=== PATIENT | male | born 1970 | race Caucasian/White ===

== ENCOUNTER → 2023-09-06 09:44 | Outpatient (REF) | payer BC, SELFPAY | LOC: HWCARD 09:44 | PROVIDERS: ATTENDING PHYSICIAN Otolaryngology; FAMILY PHYSICIAN Family Medicine | DX: Z01.818 Encounter for other preprocedural examination (principal); R06.83 Snoring; G47.33 Obstructive sleep apnea (adult) (pediatric) | CPT/HCPCS: 93005 ==

== ENCOUNTER → 2023-12-30 06:22 | Day surgery (SDC) | payer OTHER, SELFPAY ==
[2023-12-30 07:19] LABS: Glucose - Point of Care 121 mg/dl (70-99)
== END ==
LOC: GI 06:22
PROVIDERS: ATTENDING PHYSICIAN Internal Medicine
DX: Z12.11 Encounter for screening for malignant neoplasm of colon (principal); K52.3 Indeterminate colitis; K51.50 Left sided colitis without complications; K83.01 Primary sclerosing cholangitis
CPT/HCPCS: 45380; 88305; 82962

== ENCOUNTER → 2024-04-13 09:32 | Outpatient (REF) | payer OTHER, SELFPAY | LOC: PAVMRI 09:32 | PROVIDERS: ATTENDING PHYSICIAN Internal Medicine; FAMILY PHYSICIAN Family Medicine | DX: K83.01 Primary sclerosing cholangitis (principal) | CPT/HCPCS: 74183; A9575 ==

== ENCOUNTER 2025-03-05 06:23 | Day surgery (SDC) | payer OTHER, SELFPAY ==
[2025-03-05 08:02] LABS: Glucose - Point of Care 216 mg/dl (70-99)
== END 2025-03-05 09:39 | disposition home or self-care (01) ==
LOC: GI 06:23
PROVIDERS: ATTENDING PHYSICIAN Internal Medicine
DX: Z12.11 Encounter for screening for malignant neoplasm of colon (principal); K51.90 Ulcerative colitis, unspecified, without complications; K52.3 Indeterminate colitis; K83.01 Primary sclerosing cholangitis
CPT/HCPCS: 45380; 82962; 88305